=== PATIENT | male | born 1980 | race Caucasian/White ===

== ENCOUNTER 2018-12-19 15:13 | Emergency (ER) | payer MEDICAID, OTHER ==
[~2018-12-19] VITALS: Ht 170.2 cm; Wt 79.4 kg
[~2018-12-19 15:13] MED LIST: NORPTMEDS CO
[2018-12-19 15:15] VITALS: BP 140/75
[2018-12-19] MEDS ORDERED: KETOROLAC TROMETH 60MG/2ML VIAL IM ONE (16:45)
== END 2018-12-19 17:23 | disposition home or self-care (01) ==
LOC: ER 15:16
DX: S51.002A Unspecified open wound of left elbow, initial encounter (principal); S46.912A Strain of unspecified muscle, fascia and tendon at shoulder and upper arm level, left arm, initial encounter; S50.811A Abrasion of right forearm, initial encounter; F17.210 Nicotine dependence, cigarettes, uncomplicated; F12.90 Cannabis use, unspecified, uncomplicated; V28.4XXA Motorcycle driver injured in noncollision transport accident in traffic accident, initial encounter; Y93.55 Activity, bike riding; Y99.8 Other external cause status; Y92.481 Parking lot as the place of occurrence of the external cause
CPT/HCPCS: 73030; 96372; 99283; J1885

== ENCOUNTER 2019-04-17 13:53 | Emergency (ER) | payer MEDICAID ==
[2019-04-17] MEDS ORDERED: SODIUM BICARBONATE 8.4% INJ 50ML SYRINGE ONE (14:02)
[2019-04-17] MEDS ORDERED: NOREPINEPHRINE 8 MG/250ML KIT 250 ML IV ONE (14:09)
[2019-04-17] MEDS ORDERED: LACTATED RINGER'S 2,000 ML IV ONE (14:30)
[2019-04-17] MEDS ORDERED: NOREPINEPHRINE 8 MG/250ML KIT 250 ML IV SCH (14:30)
[2019-04-17] MEDS ORDERED: DEXTROSE (50%) 50ML SYRG IV ONE (14:30)
[2019-04-17 14:35] LABS: Hemoglobin 9.5 g/dL (13.5-17.5)
[2019-04-17 14:37] LABS: Mean Corpuscular Hemoglobin 30.8 pg (28.0-32.0); Mean Corpuscular Volume 90.4 fL (80.0-100.0); Platelet Count (auto) 25 10^3/uL (140-450); Red Blood Cells 3.09 10^6/uL (4.5-5.90); Red Cell Distribution Width 13.3 % (11.8-14.3); White Blood Cell 8.2 10^3/uL (4.4-10.8)
[2019-04-17 14:45] LABS: Band Neutrophils % (manual) 0; Basophils % (manual) 0 (0.0-2.0); Blast Cells 0; Eosinophils % (manual) 0 (0-7); Metamyelocytes % 0; Myelocytes % 0; Promyelocytes % 0; Reactive Lymphocytes 0
[2019-04-17] MEDS ORDERED: EPINEPHrine HCL INJECTION 4 MG in SODIUM CHL 0.9% 250 ML IV ONE (14:45)
[2019-04-17 14:52] LABS: Albumin 2.2 g/dL (3.4-5.0); Calcium 9.6 mg/dL (8.5-10.1); Magnesium 2.4 mg/dL (1.6-2.6); Potassium 5.3 mmol/L (3.5-5.1)
[2019-04-17 14:57] LABS: BUN/Creatinine Ratio 13.4; Bilirubin, Total 0.4 mg/dL (0.2-1.0); Total Protein 4.6 g/dL (6.4-8.2)
[2019-04-17 17:11] LABS: INR > 8.0 (0.9-1.15)
[2019-04-17 17:12] LABS: Partial Thromboplastin Time > 139.0 sec (23.64-32.05)
[2019-04-17 17:20] LABS: Lymphocytes % (manual) 79 (10.0-50.0); Monocytes % (manual) 4 (0-12)
== END 2019-04-17 17:32 | disposition expired ==
LOC: EDUNIT# 13:53 → EDBD 13:53 → ER 13:53
DX: I46.9 Cardiac arrest, cause unspecified (principal); F17.210 Nicotine dependence, cigarettes, uncomplicated; F12.10 Cannabis abuse, uncomplicated; V49.49XA Driver injured in collision with other motor vehicles in traffic accident, initial encounter; Y93.89 Activity, other specified; Y92.488 Other paved roadways as the place of occurrence of the external cause; Y99.8 Other external cause status
CPT/HCPCS: 36415; 36430; 36556; 36600; 51702; 71045; 80053; 82805; 83735; 84484; 85007; 85027; 85610; 85730; 86850; 86900; 86901; 92950; 94761; 96374; 99291; J0171; J7050; P9016; 86922; 96365; 96375